=== PATIENT | male | born 1990 | race Asian ===

== ENCOUNTER 2017-11-07 23:57 | Emergency (ER) | payer OTHER ==
[2017-11-08] MEDS ORDERED: Metoclopramide IV* 5 MG/ML 2 ML VIAL IV SLOW PU ONE (00:37)
[2017-11-08] MEDS ORDERED: diPHENhydraMINE IV* 50 MG/ML 1 ml VIAL (BENADRYL) IV ONE (00:37)
[2017-11-08] MEDS ORDERED: Ketorolac INJ* 30 MG/ML 1 ML VIAL IV PUSH ONE (00:37)
[2017-11-08] MEDS ORDERED: Labetalol IV* 5 MG/ML 20 ML VIAL IV PUSH ONE (00:39)
[2017-11-08 00:58] LABS: ABS Basophils 0 10^3/ul (0-0.2); ABS Eosinophils 0.1 10^3/ul (0-0.6); ABS Lymphocytes 1.5 10^3/ul (1.0-4.8); ABS Monocytes 0.2 10^3/ul (0-0.8); ABS Neutrophils 3.6 10^3/ul (1.5-7.7); ABS Nucleated RBC 0 10^3/ul; Eosinophil % 1.9 % (0-6); Hematocrit 42 % (42-52); Hemoglobin 14.3 g/dl (14.0-18.0); Lymphocyte % 26.8 % (25-47); Mean Corpuscular HGB Conc 34 g/dl (31-36); Mean Corpuscular Hemoglobin 29 pg (27-31); Mean Corpuscular Volume 85 fL (80-94); Mean Platelet Volume 8.5 um3 (7.4-10.4); Nucleated Red Blood Cells % 0.1; Platelet Count 191 10^3/ul (150-450); Red Blood Count 4.92 10^6/ul (4.00-5.40); Red Cell Distribution Width 14 % (10.5-15); White Blood Count 5.5 10^3/ul (3.5-10.8)
[2017-11-08 01:15] LABS: EGFR Non-African American 92.2 (>60)
[2017-11-08 03:04] VITALS: BP 117/66
[2017-11-08 03:43] LABS: INR 0.94 (0.77-1.02)
--- NOTE | 2017-11-08 03:44 | ED ---
Shashank Apple Tiffany, scribed for Vivien Snell MD on 11/08/17 at 0042 . Complex/Multi-Sys Presentation - HPI Summary HPI Summary: 27 year old M BIBA to [facility] complains of sudden onset room spinning dizziness since five hours ago. Symptoms aggravated by light. Symptoms alleviated by nothing. Patient reports photophobia, nausea, headache. Denies chest pain, diarrhea, fever. - History Of Current Complaint Chief Complaint: EDDizziness Time Seen by Provider: 11/08/17 00:12 Hx Obtained From: Patient Onset/Duration: Sudden Onset, Lasting Hours - 5, Still Present Timing: Constant Aggravating Factor(s): light Alleviating Factor(s): nothing Associated Signs And Symptoms: Positive: Other - photophobia, nausea, headache; NEGATIVE: chest pain, diarrhea, fever - Allergies/Home Medications Allergies/Adverse Reactions: Allergies Allergy/AdvReac Type Severity Reaction Status Date / Time Penicillins Allergy Unknown Verified 11/08/17 00:04 Reaction Details PMH/Surg Hx/FS Hx/Imm Hx Previously Healthy: No Sensory History: Denies: Hx Deafness EENT History: Denies: Hx Deafness Neurological History: Reports: Other Neuro Impairments/Disorders - stutters Psychiatric History: Reports: Hx Attention Deficit Hyperactivity Disorder - Surgical History Surgery Procedure, Year, and Place: n/a Infectious Disease History: No Infectious Disease History: Denies: Traveled Outside the [place] in Last 30 Days - Family History Known Family History: Positive: Other - reviewd and non-contributory - Social History Alcohol Use: Occasionally Hx Substance Use: No Substance Use Type: Reports: None Hx Tobacco Use: No Smoking Status (MU): Never Smoked Tobacco Review of Systems Negative: Fever Positive: Photophobia Negative: Chest Pain Positive: Nausea. Negative: Diarrhea Neurological: Other - room spinning dizziness Positive: Headache All Other Systems Reviewed And Are Negative: Yes Physical Exam - Summary Physical Exam Summary: VITAL SIGNS: Reviewed. GENERAL: Patient is a well-developed and nourished malewho is lying comfortable in the stretcher. Patient is not in any acute respiratory distress. HEAD AND FACE: No signs of trauma. No ecchymosis, hematomas or skull depressions. No sinus tenderness. EYES: PERRLA, EOMI x 2, No injected conjunctiva, no nystagmus. EARS: Hearing grossly intact. Ear canals and tympanic membranes are within normal limits. MOUTH: Oropharynx within normal limits. NECK: Supple, trachea is midline, no adenopathy, no JVD, no carotid bruit, no c- spine tenderness, neck with full ROM. CHEST: Symmetric, no tenderness at palpation LUNGS: Clear to auscultation bilaterally. No wheezing or crackles. CVS: Regular rate and rhythm, S1 and S2 present, no murmurs or gallops appreciated. ABDOMEN: Soft, non-tender. No signs of distention. No rebound no guarding, and no masses palpated. Bowel sounds are normal. EXTREMITIES: FROM in all major joints, no edema, no cyanosis or clubbing. NEURO: Alert and oriented x 3. No acute neurological deficits. Speech is normal and follows commands. SKIN: Dry and warm Triage Information Reviewed: Yes Vital Signs On Initial Exam: Initial Vitals Pulse Resp BP Pulse Ox 71 25 180/123 96 11/08/17 00:00 11/08/17 00:00 11/08/17 00:00 11/08/17 00:00 Vital Signs Reviewed: Yes Diagnostics - Vital Signs Vital Signs Temp Pulse Resp BP Pulse Ox 11/08/17 00:04 97.8 F 77 22 150/116 96 11/08/17 00:03 78 21 97 11/08/17 00:01 80 24 150/116 97 11/08/17 00:00 71 25 180/123 96 - Laboratory Result Diagrams: 11/08/17 00:51 11/08/17 00:51 Lab Statement: Any lab studies that have been ordered have been reviewed, and results considered in the medical decision making process. - CT Brain CT Interpretation Completed By: Radiologist - Normal. ED physician has reviewed this report. Re-Evaluation - Re-Evaluation First Eval Re-Evaluation Time: 03:21 Change: Improved Comment: patient feels better, ambulated with no problem, is stable at this time Complex Multi-Symp Course/Dx Course Of Treatment: 27 year old M BIBA to [facility] complains of sudden onset room spinning dizziness since five hours ago. Bloodwork obtained. In ED course, patient given Benadryl, Toradol, Trandate, and Reglan. CT Brain normal. Patient ambulated in ER with no problem after medication. Patient does not have hx HTN and will be d/c home with f/u from PMD. He was advised to monitor his BP and consult with PMD whether he needs to be started on anti-HTN medication. - Diagnoses Provider Diagnoses: Dizziness, Headache Discharge - Sign-Out/Discharge Documenting (check all that apply): Discharge/Admit/Transfer - Discharge - Discharge Plan Condition: Stable Disposition: HOME Patient Education Materials: Acute Headache (ED), Dizziness (ED) Referrals: Non Staff,Doctor [Primary Care Provider] - 3 Days Additional Instructions: Follow up with your primary care provider in 3 days. You are advised to monitor your blood pressure. Consult with your primary care provider about whether or not to start hypertension medication. RETURN TO THE EMERGENCY DEPARTMENT FOR CHANGING OR WORSENING SYMPTOMS. The documentation as recorded by the Shashank hernandez Tiffany accurately reflects the service I personally performed and the decisions made by me, Vivien Snell MD.
--- NOTE | 2017-11-08 07:36 | RAD ---
INDICATION: Headaches COMPARISON: None TECHNIQUE: Noncontrast axial source images were acquired from the skull base to the vertex. FINDINGS: Ventricles/sulci: The ventricles and cisterns are normal in size and configuration for age. Brain parenchyma: There is no focal parenchymal finding, evidence of intracranial mass, or intracranial mass effect. Intracranial hemorrhage:None. Extra-axial spaces: There are no abnormal extra axial fluid collections or evidence of extra-axial mass. Calvarium: There is no calvarial fracture or other calvarial abnormality. Scalp: There is no evidence of scalp or extracalvarial soft tissue abnormality. Paranasal sinuses/mastoid: The paranasal sinuses and mastoid air cells are clear. Other: None. IMPRESSION: NEGATIVE EXAMINATION
== END 2017-11-08 03:48 | disposition home or self-care (01) ==
LOC: ED 23:57
DX: R42 Dizziness and giddiness (principal); R51 Headache; F90.9 Attention-deficit hyperactivity disorder, unspecified type
CPT/HCPCS: 36415; 70450; 80053; 82550; 83605; 83735; 85025; 85610; 85730; 96374; 96375; 99284; J1200; J1885; J2765